=== PATIENT | male | born 1985 | race African-American/Black ===

== ENCOUNTER 2018-10-21 14:11 | Emergency (ER) | payer BC ==
[~2018-10-21] VITALS: Ht 188 cm; Wt 103.0 kg
--- NOTE | 2018-10-21 14:20 | NUR ---
PATIENT BROUGHT SELF IN FOR GOUT FLARE UP ON RIGHT FOOT
[2018-10-21] MEDS ORDERED: FEBU40TA PO (14:25)
[2018-10-21] MEDS ORDERED: KETOROLAC TROMETHAMINE INJ 30 MG/ML VIAL ONE (14:25)
[2018-10-21] MEDS ORDERED: HYDROCODONE/APAP 10/325MG 1 EA TABLET ONE (14:26)
[2018-10-21] MEDS ORDERED: ONDANSETRON 4 MG TAB.RAPDIS ONE (14:26)
[2018-10-21] MEDS ORDERED: predniSONE 20 MG TABLET ONE (14:26)
[2018-10-21] MEDS ORDERED: ONDANSETRON 4 MG TAB.RAPDIS SL ONE (14:30)
[2018-10-21] MEDS ORDERED: KETOROLAC TROMETHAMINE INJ 60 MG/2 ML VIAL IM ONE (14:30)
[2018-10-21] MEDS ORDERED: HYDROCODONE/APAP 10/325MG 1 EA TABLET PO ONE (14:30)
[2018-10-21] MEDS ORDERED: predniSONE 20 MG TABLET PO ONE (14:30)
[2018-10-21 14:38] VITALS: BP 149/75
--- NOTE | 2018-10-21 14:39 | NUR ---
Patient discharged to home in stable condition. Written and verbal after care instructions given. Patient verbalizes understanding of instruction. RX GIVEN AND EDCUATED. STATED UNDERSTANDING. CRUTHCES PROVIDED PER MD AND EDUCATED. FAMILY AT BEDSIDE TO TAKE PATIENT HOME
== END 2018-10-21 14:41 | disposition home or self-care (01) ==
LOC: ER 14:18
DX: M10.061 Idiopathic gout, right knee (principal)
CPT/HCPCS: J1885; Q0162